=== PATIENT | male | born 1950 | race Two or more races ===

== ENCOUNTER 2020-09-30 06:24 | Day surgery (SDC) | payer MEDICARE ==
[~2020-09-30] VITALS: Ht 180.3 cm; Wt 99.8 kg
[2020-09-30] VITALS (12 sets, daily range): BP systolic 127–144; BP diastolic 71–88
[2020-09-30] MEDS ORDERED: LR 1000ml ONE (06:25)
[2020-09-30] MEDS ORDERED: Sterile Water Irrig 2000ml IRRIG ONE (06:25)
[2020-09-30] MEDS ORDERED: NS Irrig 3000ml IRRIG ONE (06:25)
[2020-09-30] MEDS ORDERED: GABAPENTIN100 MG ORAL (06:54)
[2020-09-30] MEDS ORDERED: BYSTOLIC10 MG ORAL (06:54)
[2020-09-30] MEDS ORDERED: VITAMIN B122500 MCG PO (06:54)
[2020-09-30] MEDS ORDERED: REPATHA SY140 MG/1 M SQ (06:56)
[2020-09-30] MEDS ORDERED: Vancomycin 1 GM in D5W 275 ML IVPB ONE (07:00)
[2020-09-30] MEDS ORDERED: Midazolam 2mg/2ml Inj ONE (07:22)
[2020-09-30] MEDS ORDERED: fentaNYL 100 mcg/2 mL IV ONE ×2 (07:22→09:56)
[2020-09-30] MEDS ORDERED: Bacitracin 50000 Units Vial ONE ×2 (07:28→09:57)
[2020-09-30] MEDS ORDERED: Betadine 10% Oint 30gm TOPIC ONE (07:28)
[2020-09-30] MEDS ORDERED: Bacitracin Oint 15gm Tube TOPIC ONE (07:28)
[2020-09-30] MEDS ORDERED: Vancomycin 1gm vial IVPB ONE (07:29)
[2020-09-30] MEDS ORDERED: Rocuronium Bromide 50mg/5ml Inj IV ONE (07:41)
[2020-09-30] MEDS ORDERED: fentaNYL 100 mcg/2 mL IV PRN (07:45)
[2020-09-30] MEDS ORDERED: Metoclopramide 10mg/2ml Inj IVP PRN (07:45)
--- NOTE | 2020-09-30 08:01 | Pre-Procedure Note/Attestation ---
Pre-Procedure Note/Attestation Complete Prior to Procedure Planned Procedure: not applicable Procedure Narrative: Implantation of Penile Prosthesis Indications for Procedure Pre-Operative Diagnosis: ED Attestation I attest that I discussed the nature of the procedure; its benefits; risks and complications; and alternatives (and the risks and benefits of such alternatives), prior to the procedure, with the patient (or the patient's legal branch sales and service representative). I attest that, if there was a reasonable possibility of needing a blood transfusion, the patient (or the patient's legal branch sales and service representative) was given the [facility] standardized written summary, pursuant to the [place] Blood Safety Act ([place] Health and Safety Code # 1645, as amended). I attest that I re-evaluated the patient just prior to the surgery and that there has been no change in the patient's H&P, except as documented below: Alexandru Arthur MD Sep 30, 2020 08:00
[2020-09-30] MEDS ORDERED: Metoclopramide 10mg/2ml Inj ONE (09:03)
[2020-09-30] MEDS ORDERED: Lidocaine 1% MPF 10mg/ml 5ml ONE (09:03)
[2020-09-30] MEDS ORDERED: Glycopyrrolate 0.2mg/ml 1ml Vial ONE ×2 (09:13→10:15)
--- NOTE | 2020-09-30 09:24 | Anethesia Preoperative Eval ---
Anesthesia Pre-op PMH/ROS General Date of Evaluation: Sep 30, 2020 Time of Evaluation: 08:15 Anesthesiologist: christa ASA Score: ASA 3 Mallampati Score Class I : Soft palate, uvula, fauces, pillars visible Class II: Soft palate, uvula, fauces visible Class III: Soft palate, base of uvula visible Class IV: Only hard plate visible Mallampati Classification: Class III Surgeon: Jerson Diagnosis: Impotence Surgical Procedure: Penile Prosthesis Insertion Anesthesia History: none Family History: no anesthesia problems Allergies: Coded Allergies: No Known Allergies (Unverified , 09/30/20) Medications: see eMAR Patient NPO?: Yes NPO Date: Sep 30, 2020 NPO Time: 00:01 Past Medical History Cardiovascular: Reports: HTN, CAD Pulmonary: Denies: asthma, COPD, HAIM, other Gastrointestinal/Genitourinary: Reports: GERD; Denies: CRI, ESRD, other Neurologic/Psychiatric: Reports: depression/anxiety; Denies: dementia, CVA, TIA, other Endocrine: Denies: DM, hypothyroidism, steroids, other HEENT: Denies: cataract (L), cataract (R), glaucoma, [place] (L), [place] (R), other Hematology/Immune: Denies: anemia, DVT, bleeding disorder, other Musculoskeletal/Integumentary: Reports: DJD; Denies: OA, RA, DDD, edema, other Other: obesity PSxH Narrative: spine surgery Anesthesia Pre-op Phys. Exam Physician Exam Last Vital Signs Date Time Temp Pulse Resp B/P (MAP) Pulse Ox O2 Delivery O2 Flow Rate FiO2 09/30/20 06:56 97.7 62 18 144/80 96 Room Air Constitutional: NAD Neurologic: CN 2-12 intact Cardiovascular: RRR Respiratory: CTA Gastrointestinal: S/NT/ND Airway Exam Mallampati Classification 3 Mallampati Score: Class III MO: limited Neck: thick ROM: full Dentures: no upper, no lower Anesthesia Pre-op A/P Studies Pre-op Studies: EKG - sr, echo - EF55% Risk Assessment & Plan Assessment: denies cp/sob/ covid neg Plan: general Status Change Before Surgery: No Pre-Antibiotics Drug: gent/vanc Given Within 1 Hr of Incision: Yes Time Given: 08:30 Abbie Esquivel CRNA Sep 30, 2020 09:24
[2020-09-30] MEDS ORDERED: Neostigmine 1mg/ml 10ml Inj ONE (10:15)
[2020-09-30] MEDS: Hydromorphone 0.5mg/0.5ml inj IVP PRN ×2 (10:58→11:25)
--- NOTE | 2020-09-30 11:11 | Brief Operative Note ---
Immediate Post Operative Note Operative Note Pre-op Diagnosis: ED Procedure: 3 pice IPP Post-op Diagnosis: same Post-op Diagnosis: same as pre-op Surgeon: Michael Arthur Anesthesia: general Specimen: none Complications: none Condition: stable Fluids: 1000 Estimated Blood Loss: minimal Drains: none Implant(s) used?: Yes Alexandru Arthur MD Sep 30, 2020 11:11
[2020-09-30] MEDS ORDERED: Ketorolac 30mg Inj IV SCH (11:30)
--- NOTE | 2020-09-30 12:51 | Immediate Post-Op Evaluation ---
Immediate Post-Op Evalulation Immediate Post-Op Evalulation Procedure: Penile prosthesis insertion Date of Evaluation: Sep 30, 2020 Time of Evaluation: 10:40 IV Fluids: 800 Estimated Blood Loss: 5 Blood Pressure Systolic: 136 Blood Pressure Diastolic: 60 Pulse Rate: 80 Respiratory Rate: 14 O2 Sat by Pulse Oximetry: 100 Temperature (Fahrenheit): 97.7 Nausea: No Vomiting: No Complications none Patient Status: awake, reacts, patent Hydration Status: adequate Drug: vanc/Gent Given Within 1 Hr of Incision: Yes Time Given: 08:30 Abbie Esquivel CRNA Sep 30, 2020 12:51
--- NOTE | 2020-09-30 12:52 | 48 Hour Post Anesthesia Eval ---
Post Anesthesia Evaluation Procedure: Penile prosthesis insertion Date of Evaluation: Sep 30, 2020 Time of Evaluation: 12:52 Blood Pressure Systolic: 140 0: 71 Pulse Rate: 65 Respiratory Rate: 14 O2 Sat by Pulse Oximetry: 98 Airway: patent Nausea: No Vomiting: No Hydration Status: adequate Cardiopulmonary Status: stable Mental Status/LOC: patient returned to baseline Post-Anesthesia Complications: none Follow-up care needed: N/A Abbie Esquivel CRNA Sep 30, 2020 12:52
--- NOTE | 2020-10-03 21:30 | Operative Note - Dictated ---
DATE OF OPERATION: 09/30/2020 SURGEON: Alexandru Jason MD ANESTHESIA: General. PREOPERATIVE DIAGNOSIS: Organic impotence. OPERATION: Implantation of 3-piece penile prosthesis. POSTOPERATIVE DIAGNOSIS: Organic impotence. FINDINGS: Obstructed corpora. INDICATIONS FOR SURGERY: Patient has long-standing erectile dysfunction. He used oral medications, injections, stem cell therapy, none of which helped and he wanted to proceed with penile prosthesis. He understands all potential complications such as rejection of the prostheses, infections, perforations, bleeding, [place], PE, and , and he signed the consent. He was brought to the operating room, placed in the supine position, prepped and draped in the standard fashion. A penoscrotal incision was made and both corpora were opened and dilated to 10-Azeri adapter was placed in the corpora. Corpora were closed with running sutures and tested. Pump was placed through the inguinal approach into the retroperitoneal space . It was then reconnected to the pump, which was placed into the subdartos position in the scrotum. Scrotum was then closed normally inflating and deflating. The fascia was then closed in 1 layer with 2-0 Vicryl sutures and subcuticular closure for the skin. The patient tolerated the procedure well. No complications. Alexandru Arthur M.D. DR: SIDDHARTH JOB#: [id number] CC:
== END 2020-09-30 12:30 | disposition home or self-care (01) ==
LOC: SUR 06:24
DX: N52.9 Male erectile dysfunction, unspecified (principal); I11.9 Hypertensive heart disease without heart failure; I25.10 Atherosclerotic heart disease of native coronary artery without angina pectoris; F32.9 Major depressive disorder, single episode, unspecified; F41.9 Anxiety disorder, unspecified; E66.9 Obesity, unspecified; M19.90 Unspecified osteoarthritis, unspecified site
CPT/HCPCS: 54405; 94003; C1813; J1170; J1580; J1885; J2250; J2405; J2704; J2710; J2765; J3010; J3370; J7120; U0002; 94150

== ENCOUNTER 2020-10-29 09:39 | Inpatient (IN) | payer MEDICARE ==
[~2020-10-29] VITALS: Ht 177.8 cm; Wt 98.4 kg
[2020-10-29] VITALS (15 sets, daily range): BP systolic 113–167; BP diastolic 56–102
[~2020-10-29 09:39] MED LIST: BYSTOLIC10 MG ORAL; GABAPENTIN100 MG ORAL; REPATHA SY140 MG/1 M SQ; VITAMIN B122500 MCG PO
--- NOTE | 2020-10-29 10:29 | Emergency Room Report ---
History of Present Illness General Chief Complaint: General Complaint Source: Patient Present Illness HPI Patient is a 70-year-old male presents for increased discomfort to his scrotal area. Had noticed his sutures had opened after recent procedure. Had been taking oral antibiotics. Patient had prior history of lumbar surgery in the past. Denies any cough or shortness of breath. Patient was sent in for further evaluation by Dr. Arthur. Allergies: Coded Allergies: No Known Allergies (Unverified , 09/30/20) COVID-19 Screening Contact w/high risk pt: No Experienced COVID-19 symptoms?: No COVID-19 Testing performed LOCAL [place] [employer]: Yes - 2 week ago COVID-19 Screening: Negative COVID-19 COVID-19 Testing Source: clinic Patient History Past Medical History: see triage record Reviewed Nursing Documentation: PMH: Agreed; PSxH: Agreed Nursing Documentation-PMH Hx Cardiac Problems: Yes Hx Hypertension: Yes Hx Cancer: No Hx Gastrointestinal Problems: Yes Hx Neurological Problems: No Review of Systems All Other Systems: negative except mentioned in HPI Physical Exam Vital Signs Date Time Temp Pulse Resp B/P (MAP) Pulse Ox O2 Delivery O2 Flow Rate FiO2 10/29/20 09:45 97.9 85 19 140/81 (100) 95 Room Air General Appearance: well appearing, no apparent distress, alert, GCS 15, obese Head: normocephalic, atraumatic ENT: hearing grossly normal, normal voice Neck: full range of motion, supple Respiratory: no respiratory distress, speaking full sentences Cardiovascular #1: normal inspection, no edema Gastrointestinal: normal inspection, soft, other - Well-healed midline surgical scar Genitourinary: other - Some scrotal edema as well as dressing in place with partial opening of incision. Minimal erythema Musculoskeletal: no calf tenderness Neurologic: alert, motor strength/tone normal, fleshing machine operator III-XII nml as tested, normal gait Psychiatric: mood/affect normal Skin: no rash Medical Decision Making Diagnostic Impression: Primary Impression: Open wound of scrotum ER Course Patient presented for scrotal wound. Differential diagnosis include was not limited to wound dehiscence, cellulitis, infection among others. Because of complexity of patient's case laboratory tests and imaging studies were ordered. Patient was noted to have prior history of recent surgery. Patient surgeon was contacted and patient will require operative management of wound. Patient was discussed with Dr. Arthur. Last Vital Signs Date Time Temp Pulse Resp B/P (MAP) Pulse Ox O2 Delivery O2 Flow Rate FiO2 10/29/20 09:50 87 18 Room Air 10/29/20 09:50 98.0 142/80 95 Status: improved Disposition: ADMITTED INPATIENT Condition: Stable John Gallego MD Oct 29, 2020 10:29
[2020-10-29] MEDS ORDERED: ceFAZolin 2gm/50ml Premix 50 ML IV SCH (10:30)
[2020-10-29] MEDS ORDERED: ceFAZolin sod 1 GM in NS 55 ML IVPB ONE (10:30)
[2020-10-29] MEDS ORDERED: ceFAZolin 2gm/50ml Premix 50 ML IV ONE (11:00)
[2020-10-29 11:21] LABS: INR 0.9 (0.9-1.1)
[2020-10-29 11:23] LABS: BASOPHILS % (AUTO) 0.9 % (0.0-2.0); EOSINOPHILS % (AUTO) 5.5 % (0.0-3.0); HEMATOCRIT 45.5 % (42.0-52.0); HEMOGLOBIN 15.2 G/DL (14.2-18.0); LYMPHOCYTES % (AUTO) 36.6 % (20.0-45.0); MEAN CORPUSCULAR VOLUME 103 FL (80-99); PLATELET COUNT 185 K/UL (150-450); RED BLOOD COUNT 4.41 M/UL (4.70-6.10); RED CELL DISTRIBUTION WIDTH 12.6 % (11.6-14.8); WHITE BLOOD COUNT 9.1 K/UL (4.8-10.8)
[2020-10-29 11:56] LABS: CALCIUM 9.3 MG/DL (8.5-10.1); CREATININE 1.3 MG/DL (0.55-1.30); POTASSIUM 4.9 MMOL/L (3.5-5.1)
[2020-10-29 12:02] LABS: ALBUMIN 3.8 G/DL (3.4-5.0); ALBUMIN/GLOBULIN RATIO 0.9 (1.0-2.7); BILIRUBIN,TOTAL 0.6 MG/DL (0.2-1.0)
[2020-10-29] MEDS ORDERED: Bacitracin 50000 Units Vial ONE (12:23)
[2020-10-29] MEDS ORDERED: NS Irrig 1000ml IRRIG ONE ×3 (12:35→14:00)
[2020-10-29] MEDS ORDERED: Bacitracin Oint 15gm Tube TOPIC ONE (12:39)
[2020-10-29] MEDS ORDERED: LR 1000ml ONE (13:00)
[2020-10-29] MEDS ORDERED: Hydrogen Peroxide 473ml Bottle TOPIC ONE (13:02)
[2020-10-29] MEDS ORDERED: Vancomycin 1gm vial IVPB ONE (13:09)
[2020-10-29] MEDS ORDERED: Gentamicin 80mg/100ml Premix 0 ML IVPB ONE (13:09)
--- NOTE | 2020-10-29 13:11 | Anethesia Preoperative Eval ---
Anesthesia Pre-op PMH/ROS General Date of Evaluation: Oct 29, 2020 Time of Evaluation: 12:55 Anesthesiologist: Dana ASA Score: ASA 3 Mallampati Score Class I : Soft palate, uvula, fauces, pillars visible Class II: Soft palate, uvula, fauces visible Class III: Soft palate, base of uvula visible Class IV: Only hard plate visible Mallampati Classification: Class III Surgeon: Jerson Diagnosis: Scrotal Dehiesence Surgical Procedure: Explore Scrotal Wound Anesthesia History: none Family History: no anesthesia problems Allergies: Coded Allergies: No Known Allergies (Unverified , 09/30/20) Medications: see eMAR Patient NPO?: Yes Past Medical History Cardiovascular: Reports: HTN, other - HL Gastrointestinal/Genitourinary: Reports: GERD Other: obesity - BMI 32 PSxH Narrative: Lumbar SX Anesthesia Pre-op Phys. Exam Physician Exam Last Vital Signs Date Time Temp Pulse Resp B/P (MAP) Pulse Ox O2 Delivery O2 Flow Rate FiO2 10/29/20 09:50 87 18 Room Air 10/29/20 09:50 98.0 142/80 95 Constitutional: NAD Neurologic: CN 2-12 intact Cardiovascular: RRR Respiratory: CTA Gastrointestinal: S/NT/ND Airway Exam Mallampati Score: Class III MO: limited ROM: limited Teeth: missing, intact Anesthesia Pre-op A/P Labs Hematology Test 10/29/20 10:06 White Blood Count 9.1 K/UL (4.8-10.8) Red Blood Count 4.41 M/UL (4.70-6.10) L Hemoglobin 15.2 G/DL (14.2-18.0) Hematocrit 45.5 % (42.0-52.0) Mean Corpuscular Volume 103 FL (80-99) H Mean Corpuscular Hemoglobin 34.5 PG (27.0-31.0) H Mean Corpuscular Hemoglobin Concent 33.3 G/DL (32.0-36.0) Red Cell Distribution Width 12.6 % (11.6-14.8) Platelet Count 185 K/UL (150-450) Mean Platelet Volume 8.0 FL (6.5-10.1) Neutrophils (%) (Auto) 46.0 % (45.0-75.0) Lymphocytes (%) (Auto) 36.6 % (20.0-45.0) Monocytes (%) (Auto) 11.0 % (1.0-10.0) H Eosinophils (%) (Auto) 5.5 % (0.0-3.0) H Basophils (%) (Auto) 0.9 % (0.0-2.0) Coagulation Test 10/29/20 10:06 Prothrombin Time 10.4 SEC (9.30-11.50) Prothromb Time International Ratio 0.9 (0.9-1.1) Activated Partial Thromboplast Time 27 SEC (23-33) Chemistry Test 10/29/20 10:06 Sodium Level 140 MMOL/L (136-145) Potassium Level 4.9 MMOL/L (3.5-5.1) Chloride Level 104 MMOL/L (98-107) Carbon Dioxide Level 28 MMOL/L (21-32) Anion Gap 9 mmol/L (5-15) Blood Urea Nitrogen 21 mg/dL (7-18) H Creatinine 1.3 MG/DL (0.55-1.30) Estimat Glomerular Filtration Rate 54.9 mL/min (>60) Glucose Level 107 MG/DL (74-106) H Calcium Level 9.3 MG/DL (8.5-10.1) Total Bilirubin 0.6 MG/DL (0.2-1.0) Aspartate Amino Transf (AST/SGOT) 25 U/L (15-37) Alanine Aminotransferase (ALT/SGPT) 39 U/L (12-78) Alkaline Phosphatase 124 U/L (46-116) H Total Protein 7.8 G/DL (6.4-8.2) Albumin 3.8 G/DL (3.4-5.0) Globulin 4.0 g/dL Albumin/Globulin Ratio 0.9 (1.0-2.7) L Risk Assessment & Plan Assessment: ASA 3 Plan: GA, SED Status Change Before Surgery: No Pre-Antibiotics Drug: In Dash Mathias MD Oct 29, 2020 13:11
[2020-10-29] MEDS ORDERED: Midazolam 2mg/2ml Inj IVP PRN (13:15)
[2020-10-29] MEDS ORDERED: fentaNYL 100 mcg/2 mL IV PRN (13:15)
[2020-10-29] MEDS ORDERED: DiphenhydrAMINE 50mg/ml Inj IVP PRN (13:15)
[2020-10-29] MEDS ORDERED: Hydromorphone 0.5mg/0.5ml inj IVP PRN (13:15)
[2020-10-29] MEDS ORDERED: oxyCODONE HCL/Acetaminophen 5/325mg ORAL PRN (13:15)
[2020-10-29] MEDS ORDERED: Labetalol 5mg/ml 20ml vial IV PRN (13:15)
[2020-10-29] MEDS ORDERED: Meperidine 25mg/1ml Inj (FOR RIGORS ONLY) IV PRN (13:15)
[2020-10-29] MEDS ORDERED: HYDROcodone/Acetamin 5/325 tab ORAL PRN (13:15)
[2020-10-29] MEDS ORDERED: Metoclopramide 10mg/2ml Inj IVP PRN (13:15)
[2020-10-29] MEDS ORDERED: Ketorolac 30mg Inj IV PRN ×2 (13:15)
[2020-10-29] MEDS ORDERED: LORazepam Inj 2mg/ml 1ml IV PRN (13:15)
[2020-10-29] MEDS ORDERED: Atropine Sulfate 0.4mg/ml inj IVP PRN (13:15)
[2020-10-29] MEDS ORDERED: HYDROcodone/Acetamin 7.5/325 tab ORAL PRN (13:15)
[2020-10-29] MEDS ORDERED: LR 1000ml 1,000 ML IVLG SCH (13:15)
[2020-10-29] MEDS ORDERED: Lidocaine 1% MPF 10mg/ml 5ml ONE (13:19)
--- NOTE | 2020-10-29 13:39 | Immediate Post-Op Evaluation ---
Immediate Post-Op Evalulation Immediate Post-Op Evalulation Procedure: Explore Scrotal Wound Date of Evaluation: Oct 29, 2020 Time of Evaluation: 15:47 IV Fluids: 1000 LR Blood Products: 0 Estimated Blood Loss: 50 Urinary Output: 0 Blood Pressure Systolic: 167 Blood Pressure Diastolic: 102 Pulse Rate: 70 Respiratory Rate: 16 O2 Sat by Pulse Oximetry: 100 Temperature (Fahrenheit): 99 Pain Score (1-10): 2 Nausea: No Vomiting: No Complications 0 Patient Status: awake, reacts, patent, none Hydration Status: adequate Drug: In ER Given Within 1 Hr of Incision: Yes Dash Cortez MD Oct 29, 2020 13:39
--- NOTE | 2020-10-29 13:40 | 48 Hour Post Anesthesia Eval ---
Post Anesthesia Evaluation Procedure: Explore Scrotal Wound Date of Evaluation: Oct 29, 2020 Time of Evaluation: 17:59 Blood Pressure Systolic: 147 0: 89 Pulse Rate: 64 Respiratory Rate: 18 Temperature (Fahrenheit): 98.6 O2 Sat by Pulse Oximetry: 99 Airway: patent Nausea: No Vomiting: No Pain Intensity: 2 Hydration Status: adequate Cardiopulmonary Status: Stable Mental Status/LOC: patient returned to baseline Follow-up Care/Observations: 0 Post-Anesthesia Complications: 0 Follow-up care needed: ready to discharge Dash Cortez MD Oct 29, 2020 13:40
[2020-10-29] MEDS ORDERED: fentaNYL 100 mcg/2 mL IV ONE (14:30)
[2020-10-29] MEDS ORDERED: Ketorolac 30mg Inj ONE (15:26)
--- NOTE | 2020-10-29 16:41 | Diagnostic Imaging Report ---
Indication: Cough Technique: One view of the chest Comparison: none Findings: Lungs and pleural spaces are clear. Heart size is normal. Impression: No acute process
--- NOTE | 2020-10-29 16:43 | Pre-Procedure Note/Attestation ---
Pre-Procedure Note/Attestation Complete Prior to Procedure Planned Procedure: not applicable Procedure Narrative: revision and removal foreighn body scrotum scrotoplasty revision of prosthesis Indications for Procedure Pre-Operative Diagnosis: wound dehissdence and foreighn body scrotum Attestation I attest that I discussed the nature of the procedure; its benefits; risks and complications; and alternatives (and the risks and benefits of such alternatives), prior to the procedure, with the patient (or the patient's legal customer loyalty representative). I attest that, if there was a reasonable possibility of needing a blood transfusion, the patient (or the patient's legal customer loyalty representative) was given the [place] [facility] standardized written summary, pursuant to the [place] Blood Safety Act ([place] Health and Safety Code # 1645, as amended). I attest that I re-evaluated the patient just prior to the surgery and that there has been no change in the patient's H&P, except as documented below: Alexandru Arthur MD Oct 29, 2020 16:43
--- NOTE | 2020-10-29 16:44 | Brief Operative Note ---
Immediate Post Operative Note Operative Note Pre-op Diagnosis: wound dehissdence and foreighn body scrotum Procedure: Removal of large FB from the scorotum and reconstruction of the scrotal sack revision of the prosthesis Post-op Diagnosis: same Specimen: yes Complications: none Condition: stable Fluids: 500 Implant(s) used?: No Alexandru Arthur MD Oct 29, 2020 16:44
[2020-10-29] MEDS ORDERED: Ketorolac 30mg Inj IM PRN (16:45)
[2020-10-29] MEDS ORDERED: HYDROmorphone 1mg/ml Carpuject IVP PRN (16:45)
[2020-10-29] MEDS: Docusate 100mg cap ORAL SCH (18:40)
[2020-10-29] MEDS ORDERED: NS IVPB ONE (20:00)
[2020-10-29] MEDS ORDERED: GENTAMICIN IVPB ONE (20:00)
[2020-10-29] MEDS: D5 1/2NS w/KCl 20mEq 1,000 ML IV SCH (20:09)
[2020-10-29] MEDS: Vancomycin 1.25gm/Ns 275 ML IVPB SCH ×2 (22:00)
[2020-10-30] VITALS: BP 104/64
[2020-10-30] MEDS: Ketorolac 60mg Inj IM SCH ×2 (00:52→06:11)
[2020-10-30 04:00] VITALS: BP 101/55
[2020-10-30] MEDS: D5 1/2NS w/KCl 20mEq 1,000 ML IV SCH (06:12)
[2020-10-30 06:42] LABS: BASOPHILS % (AUTO) 0.4 % (0.0-2.0); HEMATOCRIT 38.5 % (42.0-52.0); LYMPHOCYTES % (AUTO) 14.6 % (20.0-45.0); MEAN CORPUSCULAR VOLUME 103 FL (80-99); MONOCYTES % (AUTO) 2.9 % (1.0-10.0); NEUTROPHILS % (AUTO) 82.1 % (45.0-75.0); PLATELET COUNT 157 K/UL (150-450); RED BLOOD COUNT 3.75 M/UL (4.70-6.10); RED CELL DISTRIBUTION WIDTH 13.1 % (11.6-14.8); WHITE BLOOD COUNT 9.4 K/UL (4.8-10.8)
[2020-10-30 07:04] LABS: ANION GAP 9 mmol/L (5-15); BLOOD UREA NITROGEN 25 mg/dL (7-18); CALCIUM 7.8 MG/DL (8.5-10.1); CARBON DIOXIDE 23 MMOL/L (21-32); CHLORIDE 102 MMOL/L (98-107); CREATININE 1.2 MG/DL (0.55-1.30); POTASSIUM 5.3 MMOL/L (3.5-5.1); SODIUM 134 MMOL/L (136-145)
[2020-10-30 08:00] VITALS: BP 119/70
--- NOTE | 2020-10-30 08:01 | Operative Note - Dictated ---
DATE OF OPERATION: 10/29/2020 PREOPERATIVE DIAGNOSIS: Dehiscence of the scrotal wound and removal of the large foreign body pieces of plastic and fat from previous plastic surgeries, revision of the pump of the penile prosthesis. POSTOPERATIVE DIAGNOSIS: Dehiscence of the scrotal wound and removal of the large foreign body pieces of plastic and fat from previous plastic surgeries, revision of the pump of the penile prosthesis. HYDROELECTRIC PLANT TECHNICIAN: Alexandru Arthur MD ANESTHESIA: General. FINDINGS: Large piece of artificial fat/collagenous tissue in the scrotum from previous injections of the foreign bodies in the scrotum, superficial dehiscences of the scrotal wound. INDICATIONS FOR SURGERY: The patient underwent a successful penile prosthesis placement three weeks ago. Everything was fine. He started a trial of pumping the prosthesis three weeks later and with forceful pumping of the prosthesis, he basically the scrotal wound. He had previous plastic and fat injections in the scrotum that created a large encapsulated foreign body in the front of the scrotum, which patient wanted to remove as well. However, this probably also contributed to the delayed healing of the wound. I explained to the patient all the risks of losing the prosthesis, infection, development of abscess in the scrotum, necessitations of removal of the penile prosthesis as well as the general complications and he signed the consent. DESCRIPTION OF PROCEDURE: He was brought to the operative room, placed in supine position, prepped and draped in standard fashion. Scrotum was prepared with a 10 minute scrub. The wound was superficially open. There was no evidence of infection of the pump or any parts of the prosthesis. I made a wide excision of the wound area, approximately 1.5 centimeters in thickness. The foreign body was palpable and using sharp and blunt dissection, we excised a small piece of indurated tissue and sent it for pathologic examination. There were further pieces of the collagenous and fat material in the proximal shaft of the penis, which was also removed including the due to the adherence of that material to the skin. Wound was copiously irrigated. moved out of the old position. A new pocket was created in the subdartos location in the left hemiscrotum, then placed in and the access to the pump was closed with 3-0 running Vicryl suture. Three layers of closure was then done in different layers of the scrotum creating a tight closure and the skin was repositioned and removed in a flat fashion cephalad to these after tensioning the skin due to the lack of several of the skin layers adhering to the plastic material. The end result was satisfactory and the wound was closed without tension with 3-0 nylon interrupted sutures x25. The wound was then closed with adhesive glue and covered with Telfa and Tegaderm. A scrotal support was applied and patient was transferred to recovery room in stable condition. Sponge count, instrument count was correct. No evidence of complications. Alexandru Arthur M.D. DR: Fay JOB#: [id number] CC:
[2020-10-30] MEDS: Docusate 100mg cap ORAL SCH (08:43)
[2020-10-30] MEDS: Vancomycin 1.25gm/Ns 275 ML IVPB SCH ×2 (08:44)
--- NOTE | 2020-10-31 13:05 | Cardiology Report ---
APPROVED REPORT EKG Measurement Heart [id number] <Conclusion> Sinus bradycardia Otherwise normal ECG
--- NOTE | 2020-11-01 10:41 | Discharge Summary ---
Discharge Summary Discharge Summary _ DATE OF ADMISSION: 10/29/2020 DATE OF DISCHARGE: 10/30/2020 DISCHARGED BY: Dr. Alexandru Arthur BRIEF HOSPITAL COURSE: Patient is a 70-year-old male who underwent successful penile prosthesis placement 3 weeks ago. Everything was fine. He started trial of clamping the prosthesis 3 weeks later and we had forceful pumping of the prosthesis, he developed a scrotal wound. He had previous plastic and fat injections that created a large encapsulated foreign body, which patient desires to be removed, and probably has contributed to the delayed healing of the wound. Patient was admitted and underwent removal of large foreign body from the scrotum and reconstruction of the scrotal sac; revision of prosthesis. He tolerated procedure well. There were no immediate complications. Postoperatively, he was given pain management. He was continued on IV antibiotics. Diet was advanced. He had good pain control. He was eventually cleared for discharge home. No imaging complications. FINAL DIAGNOSES: Dehiscence of the scrotal wound and removal of the large foreign body pieces of plastic and fat from previous plastic surgeries, revision of the pump of the penile prosthesis PROCEDURE: Removal of large foreign bodyfrom the scrotum and reconstruction of the scrotal sac and revision of the penile prosthesis DISPOSITION: Patient was discharged home. DISCHARGE MEDICATIONS: Refer to Discharge Medication List. DISCHARGE INSTRUCTIONS: Follow-up in a week. I have been assigned to complete a discharge summary on this account, I was not involved with the patient's management.--RADHA Alcazar Jacqueline Robles NP Nov 01, 2020 10:41
== END 2020-10-30 11:20 | disposition home or self-care (01) | DRG 989 ==
LOC: EMR 10:15 → SUR 12:48 → EDBEDREQSVC 13:51 → EDBEDREQ 13:51 → 3E 16:58
PROC: 0VWS0JZ Revision of Synthetic Substitute in Penis, Open Approach (ICD-10-PCS; principal; 2020-10-29 13:00)
PROC: 0VC50ZZ Extirpation of Matter from Scrotum, Open Approach (ICD-10-PCS; principal; 2020-10-29 13:00)
DX: T81.31XA Disruption of external operation (surgical) wound, not elsewhere classified, initial encounter (principal); Y83.8 Other surgical procedures as the cause of abnormal reaction of the patient, or of later complication, without mention of misadventure at the time of the procedure; M79.5 Residual foreign body in soft tissue
CPT/HCPCS: 36415; 71045; 80048; 80053; 82962; 85025; 85610; 85730; 86850; 86900; 86901; 93005; 94003; 94150; 96365; 96367; 99285; J1580; J2180; J2250; J2405; U0002